=== PATIENT | male | born 1990 | race Caucasian/White ===

== ENCOUNTER 2020-05-03 06:28 | Day surgery (SDC) | payer OTHER ==
[2020-05-03] MEDS ORDERED: CEFAZOLIN SODIUM IN 0.9 % NACL 2 GM/100 ML BAG IV ONE (06:33)
[2020-05-03] MEDS ORDERED: LACTATED RINGERS 1,000 ML IV ONE ×2 (06:45→11:16)
[2020-05-03] MEDS ORDERED: BUPIVACAINE 0.25% PF 30 ML VIAL ONE (07:44)
[2020-05-03] MEDS ORDERED: EPINEPHrine 1 MG/ML AMP ONE (07:44)
[2020-05-03] MEDS ORDERED: fentaNYL 100 MCG/2 ML VIAL IVP ONE (08:00)
[2020-05-03] MEDS ORDERED: LIDOCAINE-MPF 2% 5 ML VIAL IM ONE (08:00)
[2020-05-03] MEDS ORDERED: PROPOFOL 200 MG/20 ML VIAL IVP ONE (08:00)
[2020-05-03] MEDS ORDERED: MIDAZOLAM 2 MG/2 ML VIAL IVP ONE (08:00)
[2020-05-03] MEDS ORDERED: KETOROLAC 30 MG/ML VIAL IVP ONE (08:00)
[2020-05-03] MEDS ORDERED: ONDANSETRON 4 MG/2 ML VIAL IVP ONE (08:00)
[2020-05-03] MEDS ORDERED: DEXAMETHASONE 4 MG/ML VIAL IVP ONE (08:00)
[2020-05-03] MEDS ORDERED: HYDROmorphone 1 MG/ML CARPUJECT IVP ONE (08:00)
--- NOTE | 2020-05-03 08:07 | ANESTHESIA ---
Pre-Anesthesia VS, & Labs - Diagnosis Right ACL tear - Procedure right acl reconstruction Vital Signs: Temp Pulse Resp BP Pulse Ox 36.4 C L 79 16 142/88 H 97 05/02/20 12:20 05/02/20 12:20 05/02/20 12:20 05/02/20 12:20 05/02/20 12:20 Height: 6 ft Weight (kg): 81.2 kg Body Mass Index: 24.3 BMI Classification: Healthy weight - NPO >8 hours Home Medications and Allergies Home Medications: Ambulatory Orders Multivitamin 1 each PO 04/26/20 Naproxen [EC-Naproxen] 500 mg PO 04/26/20 Multivitamin 1 each PO 04/26/20 Naproxen [EC-Naproxen] 500 mg PO 04/26/20 Allergies/Adverse Reactions: Allergies Allergy/AdvReac Type Severity Reaction Status Date / Time No Known Drug Allergies Allergy Verified 04/26/20 08:45 Anes History & Medical History - Anesthetic History Anesthesia Complications: reports: No previous complications Family history of Anesthesia Complications: Denies Family history of Malignant Hyperthermia: Denies - Medical History Cardiovascular: reports: None Pulmonary: reports: None Gastrointestinal: reports: None Urinary: reports: None Musculoskeletal: reports: Other Endocrine/Autoimmune: reports: None Skin: reports: None Exam General: Alert, Oriented x3, Cooperative, No acute distress Dental: WNL Mouth Opening: Greater than 4 Fingerbreadths Neck Mobility: Normal Mallampati classification: II Thyromental Distance: 4-6 cm Respiratory: Lungs clear, Normal breath sounds, No respiratory distress, No accessory muscle use Cardiovascular: Regular rate, Normal S1, Normal S2, No murmurs Mental/Cognitive Status: Alert/Oriented X3, Normal for patient Plan Anesthesia Type: General, Adductor Block Regional Block: Per Surgeon's request for Post Op pain control Consent for Procedure(s) Verified and Reviewed: Yes Code Status: Attempt Resuscitation ASA classification: 2-Mild systemic disease Is this case an emergency?: No
[2020-05-03] MEDS ORDERED: EPINEPHrine 1 MG/ML AMP IR ONE (08:47)
[2020-05-03] MEDS ORDERED: BUPIVACAINE 0.25% PF 30 ML VIAL SUBQ ONE (08:48)
[2020-05-03] MEDS ORDERED: diphenhydrAMINE INJ 50 MG/ML VIAL IVP PRN (09:37)
[2020-05-03] MEDS ORDERED: NALOXONE 0.4 MG/ML VIAL IVP PRN (09:37)
[2020-05-03] MEDS ORDERED: ePHEDrine 50 MG/ML VIAL IVP PRN (09:37)
[2020-05-03] MEDS ORDERED: MORPHINE 2 MG/ML CARPUJECT IVP PRN (09:37)
[2020-05-03] MEDS ORDERED: ONDANSETRON 4 MG/2 ML VIAL IVP PRN ×2 (09:37→11:12)
[2020-05-03] MEDS ORDERED: ACETAMINOPHEN 1,000 MG/100 ML 100 ML IV ONE ×2 (09:37→11:29)
[2020-05-03] MEDS ORDERED: ATROPINE ABBOJECT 1 MG/10 ML SYRINGE IVP PRN (09:37)
[2020-05-03] MEDS ORDERED: METOCLOPRAMIDE 10 MG/2 ML VIAL IVP PRN (09:37)
[2020-05-03] MEDS ORDERED: fentaNYL 100 MCG/2 ML VIAL IVP PRN (09:37)
[2020-05-03] MEDS ORDERED: LACTATED RINGERS 1,000 ML IV SCH (10:00)
[2020-05-03] MEDS ORDERED: oxyCODONE 5 MG TABLET PO PRN (11:12)
[2020-05-03] MEDS: HYDROmorphone 0.5 MG/0.5 ML SYRINGE IVP PRN ×2 (11:21→11:32)
--- NOTE | 2020-05-03 11:23 | OPERATIVE REPORT ---
Operative Report - Other Other Information/Narrative: Date of Surgery: 03 May 2020 Pre-Op Diagnosis: Right ACL tear. Right lateral meniscus tear. Right medial meniscus tear Procedure: Arthroscopic right ACL reconstruction with hamstring autograft. Lateral meniscus debridement. Medial meniscus repair Postop Diagnosis: Same Primary Surgeon: Phong Brooks Secondary Surgeon: None Complications: None Tourniquet Time: 125 minutes EBL: 50 cc Implants: Arthrex Tightrope. Arthrex 9 mm Graftbolt. Arthrex fiber stitch x1 Graft & Tunnel Size: 8 mm Postoperative Protocol: Routine ACL with medial meniscus repair protocol. Nonweightbearing until 2 weeks. Weightbearing with the leg straight from 0 to 6 weeks. Range of motion 0-90 until 0 to 6 weeks. No squats below 90 degrees until 12 weeks Indication For Surgery: 29-year-old male sustained the above injury is while he was skateboarding 3 months ago. He performed preoperative rehabilitation and got his knee back to near full range of motion and strength but he had another injury last week while during normal activities. This caused an effusion and some swelling and a setback in his preoperative rehab. He desired to return to dynamic sports and to have his meniscus treated to prevent arthritis so surgery was indicated. The risks, benefits, and alternatives were discussed. Risks include pain, bleeding, infection, damage to nearby structures and cartilage, lack of symptom relief, need for further surgery, DVT, PE, stroke, and . Written consent was obtained. Examination Under Anesthesia: ROM equal to the contralateral side. Stable dial at 30 & 90 degrees. Stable to varus and valgus stressing at 0 & 30 degrees. Abnormal Prieto. Abnormal Pivot shift. No mechanical sensation Diagnostic Arthroscopy: No loose bodies. Synovium was injected and hypertrophic, there was significant bleeding in early scar tissue from the injury. Medial femoral condyle cartilage small areas of very superficial fraying. Medial tibial plateau cartilage had grade 1 softening. Medial meniscus had a tear off the capsule of the posterior horn which displaced every time the knee was bent as it was pinched between the femur and the tibia, and all inside anchor was used to hold it in place and it no longer displaced with range of motion. ACL was completely torn. PCL was normal. Lateral femoral condyle cartilage there was an indentation at the sulcus terminalis with superficial cartilage fraying. Lateral tibial plateau cartilage grade 1 softening. Lateral meniscus had a parrot-beak tear 1 cm from the root involving the portions of the meniscus that would have attached to the root, the meniscal femoral ligaments are very quintana and attached nicely into the PCL resulting in the lateral meniscus posterior horn being extremely stable to probing, the remnant root was debrided down. Procedure in Detail: The patient was met in the pre-operative hold area on the day of the procedure. The operative extremity was signed and questions were answered. The patient was brought to the operating room and a general anesthetic was administered. Supine position was used and bony prominences were padded. An examination under anesthesia was performed. Standard prepping and draping was performed. A time out confirmed patient identification, laterality, procedure, allergies, antibiotics, and images. An Esmarch was used to exsanguinate the limb and the tourniquet was elevated to 250 mmHg. Hamstring Graft [place]: A 4 cm incision was made over the insertion of the pes anserine. Hemostasis was obtained with electrocautery. Dissection was brought down to the sartorial fascia and this was cleared off with a sponge. A partial thickness incision was made in the sartorial fascia 5mm proximal to and in line with the gracilis tendon, taking care to not disrupt the superficial medial collateral ligament. A full thickness longitudinal incision was made down to bone, releasing the pes anserine. I then identified the interval between the hamstring tendons and the medial collateral ligament. This interval was exploited and the hamstrings were viewed on the underside of the sartorial fascia. A right angle clamp was used to separate the gracilis tendon from the sartorial fascia and it was released sharply with a knife. I then whip stitched the tendon with 4 bites up and down. I then freed the tendon from all fascial attachments back to the hiatus. A closed tendon stripper was then used to harvest the gracilis tendon and it was brought to the back table. The procedure was repeated for the semitendinosis tendon. The graft was then prepped on the back table. A standard diagnostic arthroscopy of the knee was performed through anterolateral and anteromedial portal sites. The anteromedial portal was created under direct visualization after localizing with a spinal needle. The findings can be found above. I then proceeded to use a shaver to debride the portions of the lateral meniscus root that remained intact. The posterior horn of the lateral meniscus was stable and did not require a root repair. The posterior horn of the medial meniscus displaced and was pinched between the femur and the tibia, and so a repair was indicated. I took a rasp under the meniscus and rasped the tear nicely. I then used the all inside device per the facility assistant's recommendation and created a single oblique mattress in the posterior horn. This reduced and fixed the meniscus very nicely and the meniscus no longer was pinched on range of motion and it was stable to probing. ACL Prep: I then used a sucker shaver and a radiofrequency ablation wand to release all residual ACL tissue off of the lateral wall. I debrided all excess tissue from the notch. I placed the camera into the anteromedial portal and ensured that I was cleared all the way to the back wall. I then brought the flip cutter aiming device through the lateral portal. I positioned into the central position of the [place] ACL footprint on the femur ensuring to leave a 2 mm back wall and stay off of the distal articular cartilage. Once satisfied with the position, the bullet was brought down to the skin and a wilfredo was made. A 3 cm longitudinal skin incision was made and the IT band was split in line with its fibers. A sen rake was used to retract the IT band posterior and the bullet was brought down to the lateral femoral wall. An appropriately sized flip cutter was then drilled into the notch. It was then flipped and the lateral wall was scored confirming an appropriate position. The bullet was then malleted into place and a 25mm femoral tunnel was drilled. Bony debris was removed with a shaver. A fiberstick suture was brought into the joint, retrieved out the lateral portal, and clamped to itself. I then identified the ACL footprint on the tibia and set the tibial guide at 55. I aimed to have the guide pin come out 7 mm anterior to the PCL and in line with the posterior borders of the anterior horn of the lateral meniscus, on the lateral border of the medial tibial spine. The guidewire was then brought into the joint. The knee was then straightened to confirm that it would not impinge on the notch. The guidewire was clamped with a Edilma. The skin was then protected and the tibial tunnel was drilled with the appropriate sized reamer. The fiberwire was then brought through the tibial tunnel. The graft was then loaded onto the tightrope and the graft was marked at 25mm. The graft was then passed and the button was brought out of the skin over the lateral femur. I then guided the button back down beneath the IT band and visualized it on the lateral femoral cortex. I then held tension on the graft and advanced it by pulling on the white tightrope sutures. The marking on the graft disappeared into the femoral tunnel and seated nicely. The knee was then cycled 20 times with tension on the graft. I then placed a large bump under the distal femur the pulled on all 4 limbs of the graft and placed a posterior drawer on to the proximal tibia. The guidewire was then placed into the tibia and the tunnel was dialated until a tight fit was seen. The graftbolt was then placed. I then brought the arthroscope back into the joint and probed the graft finding it to have excellent tension. Final images were taken. Excess graft was then cut and the wounds were irrigated copiously. I closed the sartorial fascia and IT band with 0 Vicryl, the subdermal tissues with 2 O Vicryl, and the skin with running Monocryl. Steri-Strips were applied and 20 cc of 0.5% Marcaine was placed under the incisions. The tourniquet was then dropped and a sterile dressing was placed. The ROM brace was placed and was locked out in full extension. He was awakened and transferred to the recovery room.
[2020-05-03] MEDS ORDERED: HYDROmorphone 1 MG/ML CARPUJECT ONE ×2 (11:29→11:51)
[2020-05-03 12:23] VITALS: BP 161/100
[2020-05-03] MEDS ORDERED: oxyCODONE 5 MG TABLET ONE (13:14)
--- NOTE | 2020-05-03 13:32 | ANESTHESIA POST OP EVALUATION ---
Anesthesia Post Eval - Post Anesthesia Eval Vitals: Last Vital Signs Temp 37.3 C 05/03/20 12:02 Pulse 97 05/03/20 12:22 Resp 15 05/03/20 12:22 BP 161/100 H 05/03/20 12:22 Pulse Ox 94 05/03/20 12:22 CV Function Including HR & BP: positive: Stable Pain Control: positive: Satisfactory Nausea & Vomiting: positive: Negative Mental Status: positive: Baseline Respiratory Status: Airway Patent Hydration Status: Satisfactory Anesthesia Complications: positive: None
== END 2020-05-03 06:29 | disposition home or self-care (01) ==
LOC: SDS 06:28
PROVIDERS: ATTEND Orthopaedic Surgery
DX: S83.511A Sprain of anterior cruciate ligament of right knee, initial encounter (principal); S83.241A Other tear of medial meniscus, current injury, right knee, initial encounter; S83.281A Other tear of lateral meniscus, current injury, right knee, initial encounter; X50.0XXA Overexertion from strenuous movement or load, initial encounter; F17.210 Nicotine dependence, cigarettes, uncomplicated

== ENCOUNTER 2020-07-05 12:52 | Day surgery (SDC) | payer OTHER ==
[2020-07-05] MEDS ORDERED: ceFAZolin 2 GM/50 ML 2 GM/50 ML BAG IV ONE (12:58)
[2020-07-05] MEDS ORDERED: LACTATED RINGERS 1,000 ML IV ONE ×3 (13:42→16:44)
--- NOTE | 2020-07-05 13:51 | ANESTHESIA ---
Pre-Anesthesia VS, & Labs - Diagnosis rightknee arthrofibrosis - Procedure right knee arthroscopic lysis of adhesions, manipulation under anesthesia Vital Signs: Temp Pulse Resp BP Pulse Ox 36.3 C L 87 14 128/83 H 95 07/05/20 13:37 07/05/20 13:37 07/05/20 13:37 07/05/20 13:37 07/05/20 13:37 Height: 6 ft Weight (kg): 84 kg Body Mass Index: 25.1 BMI Classification: Overweight - NPO >8 hours Home Medications and Allergies Multivitamin 1 each PO DAILY 04/26/20 Allergies/Adverse Reactions: Allergies Allergy/AdvReac Type Severity Reaction Status Date / Time No Known Drug Allergies Allergy Verified 06/23/20 09:23 Anes History & Medical History - Anesthetic History Anesthesia Complications: reports: No previous complications - Medical History Cardiovascular: reports: None Pulmonary: reports: None Gastrointestinal: reports: None Urinary: reports: None Neuro: reports: None Musculoskeletal: reports: Other Endocrine/Autoimmune: reports: None Blood Disorders: reports: None Skin: reports: None Smoking Status: Current every day smoker (vapes daily) Psychosocial: reports: No issues indicated, Alcohol (1-2 times per week. occassional binge drinking) - Surgical History Orthopedic: ACL reconstruction Exam General: Alert, Oriented x3, Cooperative, No acute distress Dental: WNL Mouth Openin Fingerbreadth Neck Mobility: Normal Mallampati classification: I Thyromental Distance: 4-6 cm Mental/Cognitive Status: Alert/Oriented X3, Normal for patient Plan Anesthesia Type: General, Adductor Block (right) Consent for Procedure(s) Verified and Reviewed: Yes Code Status: Attempt Resuscitation ASA classification: 2-Mild systemic disease Is this case an emergency?: No
[2020-07-05] MEDS ORDERED: LIDOCAINE-PF 2% 10 ML AMP SUBQ ONE (13:55)
[2020-07-05] MEDS ORDERED: LIDOCAINE-MPF 2% 5 ML VIAL ONE (13:55)
[2020-07-05] MEDS ORDERED: PROPOFOL 200 MG/20 ML VIAL IVP ONE (13:55)
[2020-07-05] MEDS ORDERED: KETOROLAC 30 MG/ML VIAL ONE (13:57)
[2020-07-05] MEDS ORDERED: DEXAMETHASONE 4 MG/ML VIAL ONE (13:57)
[2020-07-05] MEDS ORDERED: ONDANSETRON 4 MG/2 ML VIAL ONE (13:57)
[2020-07-05] MEDS ORDERED: ROPIVACAINE 0.5% PF 20 ML AMPULE ONE (15:32)
[2020-07-05] MEDS ORDERED: fentaNYL 100 MCG/2 ML VIAL ONE ×2 (15:36→17:08)
[2020-07-05] MEDS ORDERED: MIDAZOLAM 2 MG/2 ML VIAL ONE (15:36)
[2020-07-05] MEDS ORDERED: EPINEPHrine 1 MG/ML AMP ONE (15:43)
[2020-07-05] MEDS ORDERED: BUPIVACAINE 0.25% PF 10 ML VIAL ONE (15:43)
[2020-07-05] MEDS ORDERED: ONDANSETRON 4 MG/2 ML VIAL IVP PRN ×2 (17:45→17:47)
[2020-07-05] MEDS ORDERED: oxyCODONE 5 MG TABLET PO PRN (17:45)
[2020-07-05] MEDS ORDERED: ATROPINE ABBOJECT 1 MG/10 ML SYRINGE IVP PRN (17:47)
[2020-07-05] MEDS ORDERED: ePHEDrine 50 MG/ML VIAL IVP PRN (17:47)
[2020-07-05] MEDS ORDERED: METOCLOPRAMIDE 10 MG/2 ML VIAL IVP PRN (17:47)
[2020-07-05] MEDS ORDERED: MORPHINE 2 MG/ML CARPUJECT IVP PRN (17:47)
[2020-07-05] MEDS ORDERED: NALOXONE 0.4 MG/ML VIAL IVP PRN (17:47)
[2020-07-05] MEDS: HYDROmorphone 0.5 MG/0.5 ML SYRINGE IVP PRN ×3 (17:50→18:13)
--- NOTE | 2020-07-05 17:59 | OPERATIVE REPORT ---
Operative Report - Other Other Information/Narrative: Date of Surgery: 05 July 2020 Pre-Op Diagnosis: Right knee arthrofibrosis. Status post ACL reconstruction and meniscus repair on 03 May 2020 Procedure: Right knee arthroscopic lysis of adhesions. Right knee manipulation under anesthesia. Postop Diagnosis: Same Primary Surgeon: Phong Brooks Secondary Surgeon: Magdy Aguero Complications: None Tourniquet Time: 65 minutes EBL: 50 cc Indication For Surgery: 29-year-old male who is status post ACL reconstruction with meniscus repair on 03 May 2020. In the postoperative period he developed arthrofibrosis and his range of motion was severely limited. His range of motion limitations did not improve with physical therapy and he was indicated for surgery to restore full range of motion. The risks, benefits, and alternatives were discussed. Risks include pain, bleeding, infection, damage to nearby structures and cartilage, lack of symptom relief, need for further surgery, DVT, PE, stroke, and . Written consent was obtained. Examination Under Anesthesia: ROM was 5 degrees to 45 degrees. Stable dial at 30 & 90 degrees. Stable to varus and valgus stressing at 0 & 30 degrees. The patella was hypomobile. stable Prieto. Stable Pivot shift. No mechanical sensation Arthroscopic Findings: Loose bodies -none Synovium -hypertrophic scarring throughout the entire knee but most prominent in the medial and lateral gutters, suprapatellar pouch, and anterior knee. There w as scar tissue adjacent to the ACL traveling from the tibia vertically up to the front of the notch at the PCL insertion. All of th the scar tissue was debrided extensively, taking care to leave intact the important structures of the knee Patella cartilage -normal Trochlear cartilage -normal Medial femoral condyle cartilage -normal Medial tibial plateau cartilage -normal Medial meniscus -previous repair was stable Anterior cruciate ligament -the graft was intact, and had significant amount of vascularized scar tissue surrounding it. The scar tissue was excised and the graft looked excellent Posterior cruciate ligament -normal Lateral femoral condyle cartilage -normal Lateral tibial plateau cartilage -normal as visualized Lateral meniscus -normal as visualized Procedure in Detail: The patient was met in the pre-operative hold area on the day of the procedure. The operative extremity was signed and questions were answered. The patient was brought to the operating room and a general anesthetic was administered. Supine position was used and bony prominences were padded. An examination under anesthesia was performed. Standard prepping and draping was performed. A time out confirmed patient identification, laterality, procedure, allergies, antibiotics, and images. An Esmarch was used to exsanguinate the limb and the tourniquet was elevated to 250 mmHg. A standard diagnostic arthroscopy of the knee was performed through anterolateral and anteromedial portal sites. The anteromedial portal was created under direct visualization after localizing with a spinal needle. The findings can be found above. I then proceeded to use a biter and shaver to debride all scar tissue from the knee, I focused on the medial and lateral gutters, suprapatellar pouch, fat pad and anterior joint capsule, and scar tissue adjacent to the graft in the notch. After excising all of the scar tissue adjacent to the ACL and ensuring the graft was completely free and mobile the knee was able to fully extend. I then removed arthroscopic instruments and perform the manipulation. I gradually pushed on the knee and felt a small popping sensations and stretching. I took breaks frequently as I continue to flex the knee up now is able to flex it to 135 degrees, which left his heel a couple inches from his buttocks. I held it at this location for some time. I then replaced the scope instruments into the knee joint and found the ACL graft to be intact. There was no noticeable trauma to any of the other tissues. Final images were taken and all arthroscopic fluid and instruments were removed from the knee. The incisions were closed with buried monocryl sutures. Steri strips were applied. 20 cc of 0.25% Marcaine without epinephrine was injected near the portal sites. A sterile dressing and Benja bandage was placed. The patient was awakened and transferred to recovery in stable condition.
[2020-07-05] MEDS ORDERED: LACTATED RINGERS 1,000 ML IV SCH (18:00)
[2020-07-05] MEDS: fentaNYL 100 MCG/2 ML VIAL IVP PRN ×2 (18:00→18:18)
--- NOTE | 2020-07-05 19:03 | ANESTHESIA POST OP EVALUATION ---
Anesthesia Post Eval - Post Anesthesia Eval Vitals: Last Vital Signs Temp 37.6 C 07/05/20 18:45 Pulse 97 07/05/20 18:45 Resp 13 07/05/20 18:45 BP 147/84 H 07/05/20 18:45 Pulse Ox 98 07/05/20 18:45 CV Function Including HR & BP: positive: Stable Pain Control: positive: Satisfactory Nausea & Vomiting: positive: Negative Mental Status: positive: Baseline Respiratory Status: Airway Patent Hydration Status: Satisfactory Anesthesia Complications: positive: None
[2020-07-05 19:07] VITALS: BP 145/86
== END 2020-07-05 12:53 | disposition home or self-care (01) ==
LOC: SDS 12:52
PROVIDERS: ATTEND Orthopaedic Surgery
DX: M24.661 Ankylosis, right knee (principal); F17.290 Nicotine dependence, other tobacco product, uncomplicated; E66.3 Overweight; Z68.25 Body mass index [BMI] 25.0-25.9, adult
CPT/HCPCS: 29884; J0690; J1170; J7120

== ENCOUNTER 2020-07-09 07:44 | Observation (INO) | payer OTHER ==
[2020-07-09] MEDS ORDERED: oxyCODONE 5 MG TABLET PO PRN ×2 (08:35→09:04)
[2020-07-09] MEDS ORDERED: diphenhydrAMINE 25 MG CAPSULE PO PRN (08:35)
[2020-07-09] MEDS ORDERED: SODIUM CHLORIDE FLUSH 0.9% 10 ML SYRINGE IVP PRN (08:35)
[2020-07-09] MEDS ORDERED: PROCHLORPERAZINE 10 MG/2 ML VIAL IVP PRN (08:35)
[2020-07-09] MEDS ORDERED: BISACODYL 10 MG SUPP PR PRN (08:35)
[2020-07-09] MEDS ORDERED: SENNA 8.6 MG TABLET PO PRN (08:35)
[2020-07-09] MEDS ORDERED: ONDANSETRON 4 MG/2 ML VIAL IVP PRN (08:35)
[2020-07-09] MEDS ORDERED: ACETAMINOPHEN 1,000 MG/100 ML 100 ML IV PRN (08:35)
--- NOTE | 2020-07-09 08:52 | HISTORY & PHYSICAL EXAMINATION ---
Chief Complaint - Chief Complaint Chief Complaint: Right knee stiffness and pain History of Present Illness - Admitted From Admitted From:: Home - History Obtained From History obtained from: Patient Exam Limitations: None - History of Present Illness HPI Comment/Other: This is a 29-year-old male who is status post right ACL reconstruction with meni scus repair on May 03, 2020. He developed significant arthrofibrosis and only had 45 degrees range of motion so he was indicated for and underwent arthroscopic lysis of adhesions and manipulation under anesthesia on July 05, 2020. He was discharged to home same day and followed up with physical therapy at the [facility] on Saturday, , and Saturday. On Saturday I received a message from the physical therapist saying that his active range of motion had been decreasing over the course of those 3 days and she was concerned that the surgery was going to be a failure unless he had more intense pain control, and intensive skilled physical therapy, to include therapy over the weekend. I contacted the patient over the phone and discuss our concerns. He agreed to admission to the hospital for peripheral nerve block and IV pain medication to facilitate more aggressive and constant physical therapy. A continuous passive motion machine has been arranged to be delivered to the patient but that cannot be done until Saturday morning. The patient reports that he is feeling well. The knee feels very tight and is very painful when he attempts to bend it. Most of his pain is on the medial aspect of the knee adjacent to the patella. He notes that his patellar motion is much better than it was before surgery and the knee feels like it is moving more easily however there is extreme pain. He denies any paresthesias in the foot. He denies any calf pain, swelling, shortness of breath, chest pain, fevers, chills, sweats. He has been taking his medication and has not yet had a bowel movement. History - Past Medical History Cardiovascular: reports: None Respiratory: reports: None Neuro: reports: None Endocrine/Autoimmune: reports: None GI: reports: None : reports: None HEENT: reports: None Psych: reports: None Musculoskeletal: reports: None, Other Derm: reports: None MRSA Hx?: No - Past Surgical History Ortho: reports: ACL reconstruction Meds/Allgy - Home Medications Home Medications: Ambulatory Orders Medication Instructions Recorded Confirmed Multivitamin 1 each PO DAILY 04/26/20 07/04/20 - Allergies Allergies/Adverse Reactions: Allergies Allergy/AdvReac Type Severity Reaction Status Date / Time No Known Drug Allergies Allergy Verified 06/23/20 09:23 Review of Systems - Gastrointestinal Gastrointestinal: reports: Constipation Exam - Physical Exam General Appearance: positive: No acute distress Eyes Bilateral: positive: Normal inspection ENT: positive: ENT inspection nml Neck: positive: Nml inspection Respiratory: positive: No respiratory distress Cardiovascular: positive: Regular rate & rhythm Peripheral Pulses: positive: 2+ Skin: positive: Color nml Extremities: positive: Non-tender, Joint swelling. negative: Full ROM (Right knee ROM is from 5 degrees short of full extension to 60 degrees of flexion. The incisions are well approximated without drainage or erythema. An effusion is present. The patella is moving nicely from side to side and up and down. The knee is stable on all planes. The quadriceps is weak.), No pedal edema, Calf tenderness, Lou's sign/cords Neurologic/Psychiatric: positive: Oriented x3 Core Measures - Anticipated LOS I expect patient to be DC'd or transferred within 96 hours.: Yes - Issues Hospital Issues and Management Plan: Assessment: Right knee arthrofibrosis with significant range of motion limitations, severe right knee pain with attempted motion. Admission is necessary for IV pain management, administration of regional block, and intense physical therapy twice daily. If he does not obtain adequate range of motion within the next week his knee will never be able to bend completely and therefore not function well for him for the remainder of his life Plan: I discussed the goals for admission with the patient and answered all of his questions. I discussed these with the nursing staff as well. We will plan for regional and systemic pain management and aggressive physical therapy. Oral narcotics for baseline, IV for breakthrough Anesthesia will perform a femoral nerve block this morning Aggressive physical therapy twice daily Extensive use of ice after therapy He will need oversight and encouragement of his range of motion between [facility] therapy visits and I would like nursing staff to assist with this. He should sleep with his knee brace locked in full extension and a pillow under the foot, but not under the knee. This will help the need to remain completely straight while sleeping. He should not be allowed to sleep much during the day because he needs to work on his range of motion. The entire reason for his admission is to give him adequate pain medication and oversight of range of motion. DVT prophylaxis with foot pumps and daily aspirin and frequent ambulation Full weightbearing allowed with the knee locked in full extension in his brace Phong Brooks: [phone] - DVT/VTE - Prophylaxis VTE/DVT Device ordered at admit?: Yes VTE/DVT Prophylaxis med ordered at admit?: Yes
[2020-07-09] MEDS ORDERED: MAGNESIUM HYDROXIDE 2,400 MG/30 ML UDC PO PRN (09:04)
[2020-07-09] MEDS ORDERED: MIDAZOLAM 2 MG/2 ML VIAL ONE (09:12)
[2020-07-09] MEDS ORDERED: DEXAMETHASONE 4 MG/ML VIAL ONE (09:14)
[2020-07-09] MEDS ORDERED: ROPIVACAINE 0.5% PF 20 ML AMPULE ONE (09:14)
[2020-07-09] MEDS: ACETAMINOPHEN 325 MG TABLET PO PRN ×4 (09:24→21:27)
[2020-07-09] MEDS: ASPIRIN 325 MG TABLET PO SCH (09:24)
[2020-07-09] MEDS: bisacodyL 5 MG TABLET PO PRN ×2 (09:25→21:26)
[2020-07-09] MEDS: SODIUM CHLORIDE FLUSH 0.9% 10 ML SYRINGE IVP SCH ×2 (09:25→17:30)
[2020-07-09] MEDS ORDERED: LIDOCAINE-MPF 1% 30 ML VIAL ONE (09:35)
--- NOTE | 2020-07-09 10:26 | ANESTHESIA PROCEDURE NOTE ---
Diagnosis: post-op pain Procedure: R Fem PNB Consent for Procedure(s) Verified and Reviewed: Yes Height and Weight: Height 6 ft Weight (kg) 83 kg Body Mass Index 24.7 Vital Signs: Temp Pulse Resp BP Pulse Ox 37.1 C 83 17 139/75 H 97 07/09/20 08:51 07/09/20 08:51 07/09/20 08:51 07/09/20 08:51 07/09/20 08:51 Allergies No Known Drug Allergies Allergy (Verified 06/23/20 09:23) Requesting Provider: Cecilia Location: [facility] ASA classification: 1-Healthy patient Is this case an emergency?: No Anes. Monitoring and Equipment: Non-invasive BP, Pulse oximetery, Sterile prep and drape Anes. Procedure Start Time: 09:30 Anes. Procedure Stop Time: 10:00
--- NOTE | 2020-07-09 10:28 | ANESTHESIA POST OP EVALUATION ---
Anesthesia Post Eval - Post Anesthesia Eval Vitals: Last Vital Signs Temp 37.1 C 07/09/20 08:51 Pulse 83 07/09/20 08:51 Resp 17 07/09/20 08:51 BP 139/75 H 07/09/20 08:51 Pulse Ox 97 07/09/20 08:51 CV Function Including HR & BP: positive: Stable Pain Control: positive: Satisfactory Nausea & Vomiting: positive: Negative Mental Status: positive: Baseline Respiratory Status: Airway Patent Hydration Status: Satisfactory Anesthesia Complications: positive: None
--- NOTE | 2020-07-09 11:25 | PHARMACY PROGRESS NOTE ---
- Best Possible Medication History Admit Date and Time: 07/09/20 0752 Processed by: Pharmacy Medication History completed: Yes Patient Interview: Completed Secondary Source(s): Written medication list, Pharmacy records, Insurance records As the person ultimately responsible for medication therapy, providers are able to order a medication from an existing home medication list in [facility] via the "Reconcile Routine" prior to Confirmation of that medication by academic support coordinator. Such practice is discouraged except when the physician, in their clinical judgment, deems that a medical need exists for a medication without regard to previous use.
[2020-07-09] MEDS: oxyCODONE 5 MG TABLET PO PRN ×3 (13:34→21:27)
[2020-07-09] MEDS: MORPHINE 2 MG/ML CARPUJECT IVP PRN ×2 (15:02→19:29)
[2020-07-09] MEDS: DOCUSATE SODIUM 100 MG CAPSULE PO PRN (17:29)
[2020-07-09 18:50] LABS: B. PARAPERTUSSIS- RESP PCR PAN NOT DETECTED; B. PERTUSSIS- RESP PCR PANEL NOT DETECTED; C. PNEUMONIAE- RESP PCR PANEL NOT DETECTED; CORONAVIRUS 229E-RESP PCR NOT DETECTED; CORONAVIRUS HKU1-RESP PCR NOT DETECTED; CORONAVIRUS NL63-RESP PCR NOT DETECTED; CORONAVIRUS OC43-RESP PCR NOT DETECTED; HUMAN METAPNEUMOVIRUS NOT DETECTED; INFLUENZA A- RESP PCR PANEL NOT DETECTED; INFLUENZA B - RESP PCR PANEL NOT DETECTED; M. PNEUMONIAE- RESP PCR PANEL NOT DETECTED; PARAINFLUENZA VIRUS 1 NOT DETECTED; PARAINFLUENZA VIRUS 2 NOT DETECTED; PARAINFLUENZA VIRUS 3 NOT DETECTED; PARAINFLUENZA VIRUS 4 NOT DETECTED; RHINOVIRUS/ENTEROVIRUS NOT DETECTED; RSV- RESP PCR PANEL NOT DETECTED; SARS-CoV-2 -RESP PCR PANEL NOT DETECTED
[2020-07-10] MEDS: ACETAMINOPHEN 325 MG TABLET PO PRN ×3 (02:56→12:57)
[2020-07-10] MEDS: oxyCODONE 5 MG TABLET PO PRN ×4 (02:56→20:04)
[2020-07-10] MEDS: bisacodyL 5 MG TABLET PO PRN (07:03)
[2020-07-10] MEDS: SODIUM CHLORIDE FLUSH 0.9% 10 ML SYRINGE IVP SCH ×3 (07:04→17:26)
[2020-07-10] MEDS: DOCUSATE SODIUM 100 MG CAPSULE PO PRN (07:04)
[2020-07-10] MEDS: polyethylene glycoL 3350 17 GM PACKET PO SCH (08:54)
[2020-07-10] MEDS: ASPIRIN 325 MG TABLET PO SCH (08:55)
--- NOTE | 2020-07-10 09:02 | PROVIDER PROGRESS NOTE ---
Subjective - Prog Note Date Prog Note Date: 07/10/20 Prog Note Time: 08:30 - Subjective Pt reports feeling: Improved Subjective: 29-year-old male who is 5 days status post right knee surgery for stiffness was admitted to the hospital yesterday for pain can therapy to improve his range of motion. He reports that the femoral nerve block functioned nicely for him and allowed him to work more diligently with physical therapy. Physical therapy saw him yesterday and worked on range of motion. He has been doing range of motion activities about 10 times per hour. For this he hangs his leg off the bed and uses his other leg to bend down. He reports getting past 90 degrees with physical therapy and on his own which is better than he has had since his first surgery in May. His pain is moderate to severe when doing range of motion exercises but not very painful in the interim. He is using oxycodone for baseline pain and morphine prior to therapy to prevent breakthrough plate pain and allow him to stretch as far as he can. He denies any fevers, chills, or sweats. He denies any calf pain. He denies any chest pain or difficulty breathing. He is otherwise doing as expected and watching lots of [employer] movies. He has not yet had a bowel movement and is using a good bowel regimen. He is using aspirin for DVT prophylaxis Objective - Vital Signs/Intake & Output Reviewed Vital Signs: Yes Vital Signs: Vital Signs x48h Temp Pulse Resp BP Pulse Ox 07/10/20 08:41 36.6 C 76 16 130/70 99 07/10/20 03:00 36.5 C 62 16 129/62 99 Intake & Output: Intake & Output 07/07/20 07/08/20 07/09/20 07/10/20 23:59 23:59 23:59 23:59 Intake Total 870 1390 Balance 870 1390 - Objective General Appearance: positive: No acute distress Eyes Bilateral: positive: Normal inspection Neck: positive: Nml inspection Respiratory: positive: No respiratory distress Cardiovascular: positive: Regular rate & rhythm Skin: positive: Color nml Extremities: positive: No pedal edema, Calf tenderness, Other (Right knee is examined. Normal sensation in the peripheral nerve distributions. Incisions are dressed and without drainage/erythema. quads with moderate atrophy). negative: Full ROM (Right knee range of motion is from 0 to 90 degrees on observation today.), Joint swelling (Knee has a small effusion) Neurologic/Psychiatric: positive: Oriented x3 - Lab Results Other Labs: Lab Results x24hrs 07/09/20 Range/Units 16:40 Nasal Adenovirus (PCR) NOT DETECTED Nasal B. parapertussis DNA (PCR) NOT DETECTED Nasal Coronavir 229E PCR NOT DETECTED Nasal Coronavir HKU1 PCR NOT DETECTED Nasal Coronavir NL63 PCR NOT DETECTED Nasal Coronavir OC43 PCR NOT DETECTED Nasal Enterovir/Rhinovir PCR NOT DETECTED Nasal Influenza B PCR NOT DETECTED Nasal Influenza A PCR NOT DETECTED Nasal Parainfluen 1 PCR NOT DETECTED Nasal Parainfluen 2 PCR NOT DETECTED Nasal Parainfluen 3 PCR NOT DETECTED Nasal Parainfluen 4 PCR NOT DETECTED Nasal RSV (PCR) NOT DETECTED Nasal B.pertussis DNA PCR NOT DETECTED Nasal C.pneumoniae (PCR) NOT DETECTED Hay Human Metapneumo PCR NOT DETECTED Nasal M.pneumoniae (PCR) NOT DETECTED Nasal SARS-CoV-2 (PCR) NOT DETECTED ABX Reporting Has patient been on IV antibiotics over the past 48 hours?: No Assessment/Plan - Problem List (1) Stiffness of right knee Impression: Range of motion has improved with the current regimen. -PT 2x per day. Pre-treat with morphine prior to PT. Ice to knee post-PT -Encourage constant motion while in bed -Out of bed to chair is recommended to help knee bend further -Sleep with knee locked in full extension -CPM to be delivered tomorrow (2) Constipation due to opioid therapy Impression: Continue aggressive bowel regimen. Patient will request additional therapies if needed. (3) Right knee pain Impression: Pain is due to surgery last week and aggressive ROM. Pain is to be expected. He needs to work through it. -Tylenol scheduled for baseline pain -Oxycodone 5-15mg Q4H -Morphine prior to PT and at other times he is working hard on ROM -Ice between ROM sessions Qualifiers: Chronicity: acute Qualified Code(s): M25.561 - Pain in right knee
[2020-07-10] MEDS: MORPHINE 2 MG/ML CARPUJECT IVP PRN ×2 (10:25→12:53)
[2020-07-11] MEDS: SODIUM CHLORIDE FLUSH 0.9% 10 ML SYRINGE IVP SCH ×2 (00:02→08:16)
--- NOTE | 2020-07-11 07:20 | PROVIDER PROGRESS NOTE ---
Subjective - Prog Note Date Prog Note Date: 07/11/20 Prog Note Time: 07:18 - Subjective Pt reports feeling: Improved Subjective: 29-year-old male who is 6 days status post right knee surgery for stiffness was admitted to the hospital yesterday for pain can therapy to improve his range of motion. He reports that the femoral nerve block functioned nicely for him and allowed him to work more diligently with physical therapy. Physical therapy saw him twice yesterday and worked on range of motion. He reports improved ROM but no measurement with goniometer. He has been doing range of motion activities about 10 times per hour. For this he hangs his leg off the bed and uses his other leg to bend down. He reports getting past 90 degrees with physical therapy and on his own which is better than he has had since his first surgery in May. He feels like the block has begun to wear off. His pain is moderate to severe when doing range of motion exercises but not very painful in the interim. He is using oxycodone for baseline pain and morphine prior to therapy to prevent breakthrough plate pain and allow him to stretch as far as he can. He denies any fevers, chills, or sweats. He denies any calf pain. He denies any chest pain or difficulty breathing. He is otherwise doing as expected and watching lots of [employer] movies. He is using aspirin for DVT prophylaxis Objective - Vital Signs/Intake & Output Reviewed Vital Signs: Yes Vital Signs: Vital Signs x48h Temp Pulse Resp BP Pulse Ox 07/11/20 05:05 36.3 C L 65 16 131/79 H 96 07/10/20 23:30 36.9 C 66 17 136/58 H 97 Intake & Output: Intake & Output 07/08/20 07/09/20 07/10/20 07/11/20 23:59 23:59 23:59 23:59 Intake Total 870 2808 Balance 870 2808 - Objective General Appearance: positive: No acute distress Eyes Bilateral: positive: Normal inspection Neck: positive: Nml inspection Respiratory: positive: No respiratory distress Cardiovascular: positive: Regular rate & rhythm Peripheral Pulses: 2+ Dorsalis pedis (R), 2+ Dorsalis pedis (L) Back: positive: Nml inspection Skin: positive: Color nml Extremities: positive: Non-tender (Right knee exam shows the incisions to be well healed with sutures in place. There is no erythema. Small effusion is pre sent. Quad is atrophic. He can perform a straight leg raise. ROM is from 0-45 degrees with pain on flexion. He reports that he is "not warm". There is normal sensation.) Neurologic/Psychiatric: positive: Sensation nml Assessment/Plan - Problem List (3) Right knee pain Qualifiers: Chronicity: acute Qualified Code(s): M25.561 - Pain in right knee
[2020-07-11] MEDS: ASPIRIN 325 MG TABLET PO SCH (08:15)
[2020-07-11] MEDS: polyethylene glycoL 3350 17 GM PACKET PO SCH (08:16)
[2020-07-11] MEDS: ACETAMINOPHEN 325 MG TABLET PO PRN ×2 (08:16→14:35)
[2020-07-11] MEDS: oxyCODONE 5 MG TABLET PO PRN ×3 (08:17→14:36)
[2020-07-11] MEDS: MORPHINE 2 MG/ML CARPUJECT IVP PRN (11:05)
--- NOTE | 2020-07-11 13:48 | DISCHARGE SUMMARY ---
"Discharge Summary Admit Date: 07/09/20 Discharge Date: 07/11/20 Discharging Provider: Phong Brooks Primary Care Provider: Joss Murguia Code Status: Attempt Resuscitation Condition at Discharge: Stable Discharge Disposition: 01 Home, Self Care - DIAGNOSES Admission Diagnoses: Right knee stiffness Discharge Diagnoses with Status of Each Condition: Stiffness of right knee Impression: Range of motion has improved with the current regimen. He is ready for discharge and set up for success. -CPM, 5 sessions for 2 hours per day. Work on end ROM between sessions and ice. -PT daily at the [facility] -Encourage constant motion while in bed -Out of bed to chair is recommended to help knee bend further -Sleep with knee locked in full extension or in CPM (if comfortable enough) Right knee pain Impression: Pain is due to surgery last week and aggressive ROM. Pain is to be expected. He needs to work through it. -Tylenol scheduled for baseline pain -Oxycodone 5-10mg Q4H -Ice between ROM sessions - HPI History of Present Illness: See H&P - CONSULTS | PROCEDURES Procedures: Right femoral nerve block with ultrasound guidance - HOSPITAL COURSE Hospital Course: He was admitted Saturday morning and received a femoral nerve block. PT was performed twice daily and there was significant ROM improvement. The CPM was delivered this morning and he is using it from -3 to 97 with success. His pain is controlled on oral medications and he is ready for discharge. There were no complications during his inpatient stay. - ALLERGIES Allergies/Adverse Reactions: Allergies Allergy/AdvReac Type Severity Reaction Status Date / Time No Known Drug Allergies Allergy Verified 06/23/20 09:23 - MEDICATIONS Home Medications: Ambulatory Orders Medication Instructions Recorded Confirmed Multivitamin 1 each PO DAILY 04/26/20 07/09/20 Acetaminophen [Tylenol] 650 mg PO Q4H 07/09/20 07/09/20 Aspirin EC [Ecotrin] 325 mg PO DAILY 07/09/20 07/09/20 Docusate Sodium 100Mg Capsule 100 mg PO BID PRN 07/09/20 07/09/20 [Colace 100Mg Capsule] Ondansetron Odt [Zofran Odt] 4 mg TL Q8H PRN 07/09/20 07/09/20 oxyCODONE [Roxicodone] 5 - 10 mg PO Q4H PRN 07/09/20 07/09/20 - PHYSICAL EXAM AT DISCHARGE General Appearance: positive: No acute distress Respiratory: positive: No respiratory distress Cardiovascular: positive: Regular rate & rhythm Peripheral Pulses: positive: 2+ Skin: positive: Color nml Extremities: negative: Full ROM (observed ROM in CPM is 0-95 without pain. Incisions are well approximated. There is no erythema. Small effusion present. ) - FOLLOW UP Follow Up: 1 week in orthopedic clinic - TIME SPENT Time Spent in Discharge (Minutes): 30"
[2020-07-11 15:46] VITALS: BP 138/72
== END 2020-07-11 16:38 | disposition home or self-care (01) ==
LOC: MS2 07:52
PROVIDERS: ADMIT Orthopaedic Surgery; ATTEND Orthopaedic Surgery
DX: M25.661 Stiffness of right knee, not elsewhere classified (principal); M25.561 Pain in right knee; K59.03 Drug induced constipation; T40.2X5A Adverse effect of other opioids, initial encounter; Z98.890 Other specified postprocedural states; Z20.822 Contact with and (suspected) exposure to COVID-19
CPT/HCPCS: 0202U; 96374; 96376; 97110; 97140; 97161; A9270